=== PATIENT | female | born 1955 | race Caucasian/White ===

== ENCOUNTER 2018-02-28 15:07 | Emergency (ER) | payer OTHER ==
[~2018-02-28] VITALS: Ht 162.6 cm
[2018-02-28] MEDS ORDERED: IBUPROFEN 600MG TABLET PO ONE (16:15)
[2018-02-28 19:10] VITALS: BP 112/65
== END 2018-02-28 19:11 | disposition home or self-care (01) ==
LOC: ER 15:24
DX: S82.65XA Nondisplaced fracture of lateral malleolus of left fibula, initial encounter for closed fracture (principal); V49.88XA Car occupant (driver) (passenger) injured in other specified transport accidents, initial encounter; Y93.89 Activity, other specified; Y92.89 Other specified places as the place of occurrence of the external cause; Y99.8 Other external cause status
CPT/HCPCS: 29515; 73610; 73630; 99284